=== PATIENT | female | born 2000 | race Caucasian/White ===

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

== ENCOUNTER 2021-03-23 22:50 | Emergency (ER) | payer BC, MEDICAID ==
--- NOTE | 2021-03-24 01:50 | EDM.PDOC ---
ED HPI GENERAL MEDICAL PROBLEM - General Chief Complaint: Headache Stated Complaint: 15 WKS /VOMITTING BLOOD Time Seen by Provider: 03/24/21 01:31 Source of Information: Reports: Patient, Significant Other (Fianc) History Limitations: Reports: No Limitations - History of Present Illness INITIAL COMMENTS - FREE TEXT/NARRATIVE: Ms. Desir is a very pleasant 20-year-old woman who now presents the ED stating that she suffers from chronic migraines, with nausea and vomiting for the past 4 months, however, when she vomited around 22:00 to 22:30 last night, she noticed some blood in it. A subsequent emesis in the ED waiting room was dark yellow/brown. The patient reports that she is approximately 15 weeks gestation, with her LMP possibly in September. G1, P0. She has undergone 3 obstetrical ultrasounds, with the most recent one giving her an ARNOLDO of 09/13/2021. She states that she has not discussed her frequent emesis with her marine plumber, but that she plans to on her upcoming appointment on 03/26/2021. Here in the ED this morning, the patient is found to be hemodynamically stable, afebrile, saturating 100% on room air. She appears to be comfortable, no acute distress. Other than the patient's daily headaches, nausea, and vomiting, the patient denies having a recent fever, chills, sore throat, ear pain, nasal or sinus congestion, cough, dyspnea, chest pain, palpitations, constipation, diarrhea, abdominal pain, urinary symptoms, recent weight gain or weight loss, recent bloody bowel movements or black bowel movements, recent joint aches, or rashes. The patient's PCP is MIMI Tavarez. Her Dinkey Engineer is Dr. Jodi Borrego. She has not received a COVID vaccination. Headache Pain Score (Numeric/FACES): 7 - Related Data Allergies Allergy/AdvReac Type Severity Reaction Status Date / Time amoxicillin Allergy Cannot Verified 03/24/21 00:00 Remember clavulanic acid Allergy Cannot Verified 03/24/21 00:00 [From Augmentin] Remember Home Meds: Home Meds . [No Known Home Meds] 03/24/21 [History] Past Medical History Neurological History: Reports: Migraines (chronic/daily) Psychiatric History: Reports: Depression (untreated) - Past Surgical History HEENT Surgical History: Reports: Adenoidectomy, Oral Surgery (dental extractions), Tonsillectomy Social & Family History - Tobacco Use Tobacco Use Status *Q: Never Tobacco User - Alcohol Use Alcohol Use History: Yes Alcohol Use Frequency: Socially - Recreational Drug Use Recreational Drug Use: Yes Drug Use in Last 12 Months: No Recreational Drug Type: Reports: Marijuana/Hashish - Living Situation & Occupation Living situation: Reports: Single, with Significant Other (Fianc) Occupation: Student ([employer]) ED ROS GENERAL - Review of Systems Review Of Systems: Comprehensive ROS is negative, except as noted in HPI. ED EXAM, GENERAL - Physical Exam Exam: See Below Exam Limited By: No Limitations General Appearance: Alert, WD/WN, No Apparent Distress Eye Exam: Bilateral Eye: EOMI, Normal Inspection Ears: Normal External Exam, Hearing Grossly Normal Nose: Normal Inspection Throat/Mouth: Normal Inspection, Normal Lips, Normal Voice, No Airway Compromise Head: Atraumatic, Normocephalic Neck: Normal Inspection, Full Range of Motion Respiratory/Chest: No Respiratory Distress, Lungs Clear, Normal Breath Sounds, No Accessory Muscle Use Cardiovascular: Normal Peripheral Pulses, Regular Rate, Rhythm, No Edema, No Gallop, No JVD, No Murmur, No Rub Peripheral Pulses: 3+: Radial (L), Radial (R) GI/Abdominal: Normal Bowel Sounds, Soft, Non-Tender (including the epigastrium), No Distention, No Abnormal Bruit, No Mass, Other (Gravid uterus, consistent with dates) Back Exam: Normal Inspection, Full Range of Motion, NT Extremities: Normal Inspection, Normal Range of Motion, No Pedal Edema, Normal Capillary Refill Neurological: Alert, Oriented, Normal Cognition, No Motor/Sensory Deficits Psychiatric: Normal Affect Skin Exam: Warm, Dry, Intact, Normal Color, No Rash Course - Vital Signs Last Recorded V/S: Last Vital Signs Temp 37.1 C 03/23/21 23:57 Pulse 79 03/23/21 23:57 Resp 16 03/23/21 23:57 BP 110/61 03/23/21 23:57 Pulse Ox 100 03/23/21 23:57 - Orders/Labs/Meds Meds: Medications Discontinued Medications Generic Name Dose Route Start Last Admin Trade Name Freq PRN Reason Stop Dose Admin Ondansetron HCl 4 mg 03/24/21 01:45 03/24/21 01:55 Ondansetron 4 Mg Tab.Dis PO 03/24/21 01:46 4 mg ONETIME ONE Administration - Re-Assessments/Exams Free Text/Narrative Re-Assessment/Exam: 03/24/21 01:45 The patient is describing a Marianela-Suarez tear. No further evaluation is necessary. She will be given a single dose of Zofran ODT here in the ED, and I will discharge her home with an [facility] prescription of the same. She is scheduled to follow-up with Dr. Borrego on 03/26/2021, at which time they can discuss long-term treatment for her current -related vomiting. Departure - Departure Time of Disposition: 01:46 Disposition: Home, Self-Care 01 Condition: Good Clinical Impression: Marianela-Suarez tear, Vomiting during - Discharge Information *PRESCRIPTION DRUG MONITORING PROGRAM REVIEWED*: Not Applicable *COPY OF PRESCRIPTION DRUG MONITORING REPORT IN PATIENT NAEEM: Not Applicable Instructions: Nausea and Vomiting, Adult, [id number] Referrals: Jodi Borrego MD [Primary Care Provider] - Forms: ED Department Discharge Additional Instructions: You were seen in the emergency room after vomiting last night, finding some blood in it. Based on your history and physical examination, you suffered a Marianela-Suarez tear = a tear in the mucosa at the gastroesophageal junction caused by high shear pressures when vomiting. You have been started on the antinausea medicine Zofran ODT, and a prescription for Zofran ODT has been provided to you via [facility]. You may dissolve 1 tablet of Zofran ODT on your tongue up to every 8 hours, as needed for nausea/vomiting. Stay adequately hydrated. Follow-up with your Dinkey Engineer, Dr. Jodi Borrego, at your previously scheduled appointment this coming 03/26/2021. If any other problems, including persistent vomiting with blood in it, please do not hesitate to return to the ER. Sepsis Event Note (ED) - Focused Exam Vital Signs: Vital Signs Temp Pulse Resp BP Pulse Ox 03/23/21 23:57 37.1 C 79 16 110/61 100
[2021-03-24] MEDS: Ondansetron 4 MG Tab.DIS PO ONE (01:55)
== END 2021-03-24 01:55 | disposition home or self-care (01) ==
LOC: JD.ED 22:50
DX: O99.612 Diseases of the digestive system complicating pregnancy, second trimester (principal); K22.6 Gastro-esophageal laceration-hemorrhage syndrome; O21.9 Vomiting of pregnancy, unspecified; Z88.0 Allergy status to penicillin; Z88.1 Allergy status to other antibiotic agents; Z3A.15 15 weeks gestation of pregnancy
CPT/HCPCS: 99283; A9270

== ENCOUNTER 2021-08-18 23:51 | Observation (INO) | payer MEDICAID ==
[2021-08-19] MEDS ORDERED: Ondansetron 4 MG/2 ML SDV IVPUSH PRN (00:15)
[2021-08-19] MEDS ORDERED: Lidocaine 1% 50 ML MDV INJECT PRN (00:15)
[2021-08-19] MEDS ORDERED: Oxytocin/Lactated Ringers 10 UNIT/1,000 ML BAG IV SCH ×2 (00:15)
[2021-08-19] MEDS ORDERED: Nalbuphine 10 MG/1 ML Vial IVPUSH PRN (00:15)
[2021-08-19] MEDS ORDERED: Calcium Carbonate 500 MG Tab.Chew PO PRN (00:15)
[2021-08-19] MEDS ORDERED: Ampicillin 2 GM in Sodium Chloride 0.9% 100 ML IV ONE (00:15)
[2021-08-19] MEDS: Lactated Ringers 1,000 ML IV SCH ×5 (00:35→11:25)
[2021-08-19] MEDS ORDERED: diphenhydrAMINE 50 MG/ML SDV IVPUSH PRN (01:25)
[2021-08-19] MEDS ORDERED: ePHEDrine 50 MG/ML SDV IVPUSH PRN (01:25)
[2021-08-19] MEDS ORDERED: fentaNYL 100 MCG/2 ML SDV EPIDUR PRN (01:25)
[2021-08-19] MEDS: Bupivacaine/fentaNYL/NS 100 ML Bag EPIDUR PRN ×2 (01:39→08:40)
[2021-08-19] MEDS: Ampicillin 1 GM in Sodium Chloride 0.9% 100 ML IV SCH ×3 (04:15→12:12)
[2021-08-19] MEDS ORDERED: Sodium Chloride 0.9% 10 ML Syringe FLUSH SCH (09:00)
[2021-08-19] MEDS ORDERED: Lidocaine 1.5% with EPINEPHrine 1:200,000 5 ML Amp ONE (10:00)
[2021-08-19] MEDS ORDERED: Acetaminophen 325 MG Tab PO PRN (14:40)
[2021-08-19] MEDS ORDERED: Docusate Sodium 100 MG Cap PO PRN (14:40)
[2021-08-19] MEDS: Ibuprofen 600 MG Tab PO PRN (15:34)
[2021-08-20] MEDS: Ibuprofen 600 MG Tab PO PRN ×2 (02:03→17:03)
[2021-08-21] MEDS: Ibuprofen 600 MG Tab PO PRN ×2 (03:10→15:12)
[2021-08-21] MEDS: Witch Hazel Medicated Pads 40/Jar TOP PRN ×2 (03:12→03:13)
[2021-08-21] MEDS: Benzocaine/Menthol 20%-0.5% Spray 78 GM Cannister TOP PRN ×2 (03:12→03:14)
== END 2021-08-21 15:15 | disposition home or self-care (01) ==
LOC: JD.OBCHECK 23:51 → JD.OB 23:54 → JD.OBCHECK 08-19 00:15 → JD.OB 08-19 00:16
PROVIDERS: ADMIT Obstetrics & Gynecology; ATTEND Obstetrics & Gynecology
DX: O80 Encounter for full-term uncomplicated delivery (principal); J45.909 Unspecified asthma, uncomplicated; K21.9 Gastro-esophageal reflux disease without esophagitis; Z3A.36 36 weeks gestation of pregnancy; Z79.899 Other long term (current) drug therapy; Z88.1 Allergy status to other antibiotic agents; Z98.890 Other specified postprocedural states; Z88.8 Allergy status to other drugs, medicaments and biological substances; Z88.0 Allergy status to penicillin; Z87.891 Personal history of nicotine dependence
CPT/HCPCS: 01967; 36415; 51702; 59025; 59409; 85027; 86592; 86850; 86900; 86901; 87653; A9270-GY; J0290; J2590; J3010; J7120; U0002

== ENCOUNTER 2021-09-30 12:54 | Emergency (ER) | payer MEDICAID ==
[2021-09-30] MEDS ORDERED: Sodium Chloride 0.9% 10 ML Syringe FLUSH PRN (13:15)
[2021-09-30] MEDS ORDERED: Ketorolac 30 MG/ML SDV IVPUSH ONE (13:25)
[2021-09-30] MEDS ORDERED: Sodium Chloride 0.9% 1,000 ML IV ONE (13:25)
[2021-09-30] MEDS ORDERED: Ondansetron 4 MG/2 ML SDV IVPUSH ONE (13:26)
== END 2021-09-30 15:25 | disposition home or self-care (01) ==
LOC: JD.ED 12:54
DX: O72.1 Other immediate postpartum hemorrhage (principal); Z88.2 Allergy status to sulfonamides; Z88.0 Allergy status to penicillin
CPT/HCPCS: 36415; 80053; 85025; 86850; 86900; 86901; 99284